=== PATIENT | male | born 1945 | race Caucasian/White ===

== ENCOUNTER 2022-10-23 20:07 | Emergency (ER) | payer OTHER ==
[2022-10-23] MEDS ORDERED: Sodium Chloride 0.9% 10 ML Syringe FLUSH PRN (20:30)
[2022-10-23] MEDS ORDERED: Sodium Chloride 0.9% 1,000 ML IV ONE (20:37)
[2022-10-23 20:41] LABS: BASOPHILS PERCENT AUTO 0.8 % (0.0-1.0); EOSINOPHILS PERCENT AUTO 7.8 % (1.0-3.0); HEMATOCRIT 46.7 % (40.0-54.0); HEMOGLOBIN 15.8 g/dL (14.0-18.0); LYMPHOCYTES PERCENT AUTO 27.6 % (20.5-50.1); MEAN CORPUSCULAR HEMOGLOBIN 30.3 pg (27.0-34.0); MEAN CORPUSCULAR HGB CONC 33.8 g/dL (33.0-35.0); MEAN CORPUSCULAR VOLUME 89.5 fL (80-100); MONOCYTES PERCENT AUTO 14.3 % (2-8); NEUTROPHILS PERCENT AUTO 49.5 % (42.2-75.2); PLATELET COUNT,PLT 263 10^3/uL (150-450); RED BLOOD CELL COUNT 5.22 10^6/uL (4.6-6.2)
[2022-10-23 20:54] LABS: APPEARANCE,URINE CLEAR (CLEAR); BILIRUBIN,URINE NEGATIVE (NEGATIVE); COLOR,URINE YELLOW (YELLOW); GLUCOSE,URINE 500 (NEGATIVE); KETONES,URINE 15 (NEGATIVE); LEUKOCYTE ESTERASE,URINE NEGATIVE (NEGATIVE); NITRITE,URINE NEGATIVE (NEGATIVE); OCCULT BLOOD,URINE LARGE (NEGATIVE); PROTEIN,URINE NEGATIVE (NEGATIVE); UROBILINOGEN,URINE 0.2 mg/dL (0.2-1.0)
[2022-10-23 21:04] LABS: A/G RATIO 1.2; ALANINE AMINOTRANSFERASE,ALT 25 U/L (16-63); ALBUMIN 3.6 g/dL (3.4-5.0); ALKALINE PHOSPHATASE 53 U/L (46-116); AMYLASE 52 U/L (25-115); ANION GAP 13.5 mEq/L (7-13); BILIRUBIN TOTAL 0.4 mg/dL (0.2-1.0); BLOOD UREA NITROGEN,BUN 17 mg/dL (7-18); BUN/CREATININE RATIO 17.9 (No establ ref range); CALCIUM 8.5 mg/dL (8.5-10.1); CARBON DIOXIDE,CO2 28 mmol/L (21-32); CHLORIDE,CL 103 mmol/L (98-107); CREATININE 0.95 mg/dL (0.70-1.30); EST CRCL DRUG DOSING (CG) 78.11 mL/min; GLUCOSE RANDOM 198 mg/dL (70-99); LIPASE 265 U/L (73-393); MAGNESIUM 1.7 mg/dL (1.8-2.4); POTASSIUM,K 3.5 mmol/L (3.5-5.1); PROTEIN TOTAL,TP 6.7 g/dL (6.4-8.2); SODIUM,NA 141 mmol/L (136-145)
[2022-10-23 21:05] LABS: ASPARTATE AMNIOTRANSFERASE,AST < 5 U/L (15-37); C-REACTIVE PROTEIN < 0.2 mg/dL (0.0-0.9); ESTIMATED GFR 83 mL/min (>=60)
[2022-10-23 21:06] LABS: LACTIC ACID 2.1 mmol/L (0.4-2.0)
[2022-10-23 21:13] LABS: EPITHELIAL CELLS,URINE RARE /HPF (NOT SEEN); RBC,URINE 75-100 /HPF (0-5); WBC,URINE 0-5 /HPF (0-5/HPF)
[2022-10-23 21:14] LABS: AMORPHOUS SEDIMENT,URINE FEW /HPF (NOT SEEN); BACTERIA,URINE MODERATE /HPF (0-FEW/HPF); MUCUS,URINE RARE /LPF (NOT SEEN)
[2022-10-23] MEDS ORDERED: Ketorolac 30 MG/ML SDV IVPUSH ONE (21:45)
[2022-10-23] MEDS ORDERED: Ondansetron 4 MG/2 ML SDV IVPUSH ONE (21:45)
[2022-10-23] MEDS ORDERED: Take Home: Ondansetron 4 MG Tab.DIS, 5 Tab Pack PO ONE (22:29)
== END 2022-10-23 22:47 | disposition home or self-care (01) ==
LOC: DL.ED 20:07
DX: N13.30 Unspecified hydronephrosis (principal); Z88.0 Allergy status to penicillin
CPT/HCPCS: 36415; 74176; 80053; 81001; 82150; 82947; 83605; 83690; 83735; 84484; 85025; 86140; 87804; 93005; 93010; 96361; 96374; 96375; 99284; 99284-25; J1885; J2405; J3490; J7030; Q0162